=== PATIENT | female | born 1965 | race Caucasian/White ===

== ENCOUNTER 2023-12-31 15:39 | Inpatient (IN) | payer BC ==
[~2023-12-31] VITALS: Ht 167.6 cm; Wt 80.8 kg
[2023-12-31 16:39] LABS: BASOPHILS % (AUTO) 0.1 % (0-1); EOSINOPHILS % (AUTO) 0 % (0-6); HEMATOCRIT 41.2 % (35.0-45.0); HEMOGLOBIN 13.6 g/dl (12.0-16.0); LYMPHOCYTES # (AUTO) 0.4 X10'3 (1.1-4.8); LYMPHOCYTES % (AUTO) 1.4 % (21-51); MEAN CORPUSCULAR HEMOGLOBIN 33.4 PG (27.0-31.0); MEAN CORPUSCULAR HGB CONC 32.9 g/dL (33.0-36.5); MEAN CORPUSCULAR VOLUME 101.5 FL (78-98); MEAN PLATELET VOLUME 9.2 FL (7.4-10.4); MONOCYTES # (AUTO) 1.1 X10'3 (0-0.9); MONOCYTES % (AUTO) 4.4 % (2-12); NEUTROPHILS # (AUTO) 23.3 X10'3 (1.8-7.7); NEUTROPHILS % (AUTO) 94.1 % (42-75); PLATELET COUNT 183 X10'3 (140-440); RED BLOOD COUNT 4.06 X10'6 (4.20-5.60); RED CELL DISTRIBUTION WIDTH 14.4 % (11.5-14.5); WHITE BLOOD COUNT 24.8 X10'3 (4.5-11.0)
[2023-12-31 16:52] LABS: MAGNESIUM 1.6 MG/DL (1.5-2.4)
[2023-12-31] MEDS ORDERED: CefTRIAXone/D5W-Rocephin 1gm 50 ML IV ONE (18:55)
[2023-12-31] MEDS: clindamycin 600mg/D5W 50ml 50 ML IV ONE (19:41)
[2023-12-31] MEDS: normal saline 1000ml 1,000 ML IV ONE ×2 (19:42→22:43)
[2023-12-31] MEDS: HYDROmorphone inj. 0.5 MG/0.5 ML DISP.SYRIN IV ONE (19:52)
[2023-12-31 20:34] LABS: ALANINE AMINOTRANSFERASE 32 U/L (12-78); ALBUMIN 2.9 G/DL (3.4-5.0); ALBUMIN/GLOBULIN RATIO 0.7 (1.1-1.5); ALKALINE PHOSPHATASE 101 IU/L (46-116); ANION GAP 13 (8-16); ASPARTATE AMINO TRANSFERASE 46 U/L (10-37); BILIRUBIN,TOTAL 1.2 MG/DL (0.1-1.0); BLOOD UREA NITROGEN 22 MG/DL (7-18); BUN/CREATININE RATIO 13.8 (10.0-20.0); CALCIUM 8.7 MG/DL (8.5-10.1); CHLORIDE 94 MMOL/L (99-107); CREATININE 1.59 MG/DL (0.40-0.90); GLUCOSE 134 MG/DL (70-104); SODIUM 132 MMOL/L (135-145); TOTAL CARBON DIOXIDE 25.1 MMOL/L (24-32); eCRCL 36 ML/MIN; eGFR 33 ML/MIN
[2023-12-31 20:38] LABS: POTASSIUM 2.9 MMOL/L (3.5-5.1)
[2023-12-31] MEDS ORDERED: magnesium sulf-water 4G/100mL 100 ML IV PRN (20:50)
[2023-12-31] MEDS ORDERED: haloperidol lactate 5mg/ml inj IM PRN (20:50)
[2023-12-31] MEDS ORDERED: dextrose 50%-water 50ml dispensing syringe IV PRN (20:50)
[2023-12-31] MEDS ORDERED: magnesium sulf-water 2g/50mL 50 ML IV PRN (20:50)
[2023-12-31] MEDS ORDERED: haloperidol 5mg tablet PO PRN (20:50)
[2023-12-31] MEDS ORDERED: potassium Cl 40MEQ/1/2NS 520ml 520 ML IV PRN (20:50)
[2023-12-31] MEDS ORDERED: magnesium Cl slow-release 64mg tablet PO PRN (20:50)
[2023-12-31] MEDS: potassium CL 10mEq/100ml bag 100 ML IV SCH (21:00)
[2023-12-31] MEDS: thiamine 100mg/ml 2ml inj. IM ONE (21:42)
[2023-12-31] MEDS: potassium Cl 20 mEq SR tablet PO PRN (21:49)
[2023-12-31] MEDS: thiamine 100mg/ml 2ml inj. IV SCH (21:49)
[2023-12-31] MEDS: VANCOMYCIN/WATER FOR INJ (PEG) 1.25GM/250 ML IVPB IV ONE (21:49)
[2023-12-31] MEDS: normal saline 1000ml 1,000 ML IV SCH (21:50)
[2023-12-31 21:54] LABS: THYROID STIMULATING HORMONE 2.18 ulU/ml (0.34-4.50)
[2023-12-31] MEDS: acetaminophen 325mg tablet PO PRN (22:43)
[2023-12-31] MEDS: LORazepam 2 mg/ml vial IV PRN (22:43)
[2024-01-01] VITALS (13 sets, daily range): BP systolic 91–155; BP diastolic 40–77; PULSE 82–105; RESP 12–26; TEMP 98.1; O2SAT 93–99
[2024-01-01] MEDS: acetaminophen 1,000mg/100ml IV 100 ML IV ONE (00:30)
[2024-01-01] MEDS: normal saline 1000ml 1,000 ML IV ONE (01:20)
[2024-01-01] MEDS: NORepinephrine 8mg/ 250ml NS 250 ML IV ONE (01:51)
[2024-01-01 02:40] LABS: BILIRUBIN,URINE NEGATIVE (Neg); CLARITY,URINE CLOUDY (Clear); COLOR,URINE YELLOW (Yellow); GLUCOSE, URINE NEGATIVE (Neg); KETONES,URINE TRACE mg/dl (Neg); LEUKOCYTE ESTERASE ,URINE MODERATE (Neg); NITRITES, URINE NEGATIVE (Neg); OCCULT BLOOD,URINE SMALL (Neg); PROTEIN,URINE 30 mg/dl (Neg); UROBILINOGEN,URINE 0.2 E.U/dL (0.2-1.0)
[2024-01-01 02:43] LABS: UA COLLECTION TYPE FOLEY CATH
[2024-01-01 02:44] LABS: SQUAMOUS EPITHELIAL CELL,UR MANY /LPF (FEW); WBC CLUMPS,URINE MODERATE /HPF (NEGATIVE); WBC,URINE TNTC /HPF (0-4)
[2024-01-01 02:45] LABS: BACTERIA,URINE 3+ /HPF (Neg)
[2024-01-01 02:47] LABS: MUCUS STRANDS FEW /LPF (Neg); TRANSITIONAL EPI CELLS,URINE FEW /HPF
[2024-01-01 02:54] LABS: URINE AMPHETAMINE SCREEN NEGATIVE (Neg); URINE BARBITUATE SCREEN NEGATIVE (Neg); URINE BENZODIAZEPINES SCREEN NEGATIVE (Neg); URINE CANNABINOID SCREEN POSITIVE (Neg); URINE COCAINE SCREEN NEGATIVE (Neg); URINE METHADONE SCREEN NEGATIVE (Neg); URINE OPIATE SCREEN POSITIVE (Neg); URINE PHENCYCLIDINE SCREEN NEGATIVE (Neg)
[2024-01-01] MEDS: morphine 2 MG/ML inj. syringe IV PRN (03:37)
[2024-01-01] MEDS: ondansetron/PF 4mg/2ml inj IV PRN (03:37)
[2024-01-01] MEDS: piperacillin/tazo 3.375gm/50ml 50 ML IV SCH (03:52)
[2024-01-01 04:14] LABS: BASOPHILS % (AUTO) 0.1 % (0-1); EOSINOPHILS % (AUTO) 0 % (0-6); HEMATOCRIT 36.2 % (35.0-45.0); HEMOGLOBIN 11.8 g/dl (12.0-16.0); LYMPHOCYTES # (AUTO) 0.6 X10'3 (1.1-4.8); LYMPHOCYTES % (AUTO) 2.4 % (21-51); MEAN CORPUSCULAR HEMOGLOBIN 33.3 PG (27.0-31.0); MEAN CORPUSCULAR HGB CONC 32.6 g/dL (33.0-36.5); MEAN CORPUSCULAR VOLUME 101.9 FL (78-98); MEAN PLATELET VOLUME 9.5 FL (7.4-10.4); MONOCYTES # (AUTO) 1.4 X10'3 (0-0.9); MONOCYTES % (AUTO) 5.6 % (2-12); NEUTROPHILS # (AUTO) 22.8 X10'3 (1.8-7.7); NEUTROPHILS % (AUTO) 91.9 % (42-75); PLATELET COUNT 171 X10'3 (140-440); RED BLOOD COUNT 3.55 X10'6 (4.20-5.60); RED CELL DISTRIBUTION WIDTH 14.5 % (11.5-14.5); WHITE BLOOD COUNT 24.9 X10'3 (4.5-11.0)
[2024-01-01 04:21] LABS: ALANINE AMINOTRANSFERASE 22 U/L (12-78); ALBUMIN 2.2 G/DL (3.4-5.0); ALBUMIN/GLOBULIN RATIO 0.6 (1.1-1.5); ALKALINE PHOSPHATASE 78 IU/L (46-116); ANION GAP 11 (8-16); ASPARTATE AMINO TRANSFERASE 30 U/L (10-37); BILIRUBIN,TOTAL 1.1 MG/DL (0.1-1.0); BLOOD UREA NITROGEN 18 MG/DL (7-18); BUN/CREATININE RATIO 18.6 (10.0-20.0); CALCIUM 7.5 MG/DL (8.5-10.1); CHLORIDE 103 MMOL/L (99-107); CREATINE KINASE 358 U/L (26-192); CREATININE 0.97 MG/DL (0.40-0.90); GLUCOSE 114 MG/DL (70-104); POTASSIUM 3.2 MMOL/L (3.5-5.1); SODIUM 135 MMOL/L (135-145); TOTAL CARBON DIOXIDE 21.3 MMOL/L (24-32); TOTAL PROTEIN 5.9 G/DL (6.4-8.2); eCRCL 59 ML/MIN; eGFR 59 ML/MIN
[2024-01-01] MEDS ORDERED: GABA300T28 PO (04:47)
[2024-01-01] MEDS ORDERED: DICL50TA8 PO (04:47)
[2024-01-01] MEDS ORDERED: ROSU20TA73 PO (04:47)
[2024-01-01] MEDS ORDERED: BUPR-564 PO (04:47)
[2024-01-01] MEDS ORDERED: TRAM50TA2 PO (04:47)
[2024-01-01 04:56] LABS: BANDS% (MANUAL) 7 % (0-10); LYMPHOCYTES % (MANUAL) 1 % (21-51); MONOCYTES % (MANUAL) 6 % (2-12); NEUTROPHILS % (MANUAL) 86 % (42-75); PLATELET ESTIMATE NORMAL; TOTAL CELLS COUNTED 0
[2024-01-01] MEDS: K and/or MAG REPLACEMENT MC SCH (07:52)
[2024-01-01] MEDS: multivitamins, therapeutics tablet PO SCH (07:56)
[2024-01-01] MEDS: enoxaparin 40mg/0.4ml syringe SUBCUT SCH (07:58)
[2024-01-01] MEDS: folic acid 1mg/0.2ml inj IV SCH (08:10)
[2024-01-01] MEDS: albumin (Human) 5% 250ml 250 ML IV ONE (10:30)
[2024-01-01] MEDS ORDERED: GABA300C PO (10:39)
[2024-01-01] MEDS ORDERED: CALC-485 PO (10:39)
[2024-01-01] MEDS ORDERED: BACI1CAP6 PO (10:39)
[2024-01-01] MEDS: albumin (human) 25% 100ml IV 300 ML IV ONE (11:12)
[2024-01-01] MEDS: albumin (human) 25% 100ml IV 100 ML IV ONE ×2 (11:12→11:13)
[2024-01-01] MEDS: albumin (human) 25% 100ml IV 400 ML IV ONE (11:14)
[2024-01-01] MEDS: albumin (Human) 5% 250ml 250 ML IV SCH (11:15)
[2024-01-01] MEDS: ringers solution, lacted 2,000 ML IV ONE (11:15)
[2024-01-01] MEDS: TETanus/Pertussis (Acell)/Diphther VAC/PF (Tdap-Adult) 0.5ml syringe IMVAC ONE (13:34)
[2024-01-01] MEDS: VANCOMYCIN 1GM 200ML H20 (PEG) 200 ML IV SCH (13:34)
[2024-01-01] MEDS: potassium Cl 20 mEq SR tablet PO PRN (20:37)
[2024-01-01] MEDS ORDERED: VANCOMYCIN 1GM 200ML H20 (PEG) 200 ML IV SCH (21:00)
[2024-01-02] VITALS (7 sets, daily range): BP systolic 101–138; BP diastolic 57–96; PULSE 81–83; RESP 16–18; TEMP 97.5–98.6; O2SAT 98–100
[2024-01-02] MEDS: HYDROcodone/acetaminophen 5mg/325mg tablet PO PRN (00:54)
[2024-01-02 06:27] LABS: ALANINE AMINOTRANSFERASE 23 U/L (12-78); ALBUMIN 3.1 G/DL (3.4-5.0); ALBUMIN/GLOBULIN RATIO 1.2 (1.1-1.5); ALKALINE PHOSPHATASE 82 IU/L (46-116); ANION GAP 8 (8-16); ASPARTATE AMINO TRANSFERASE 45 U/L (10-37); BASOPHILS % (AUTO) 0.1 % (0-1); BLOOD UREA NITROGEN 7 MG/DL (7-18); BUN/CREATININE RATIO 10.9 (10.0-20.0); CALCIUM 7.8 MG/DL (8.5-10.1); CHLORIDE 105 MMOL/L (99-107); CREATININE 0.64 MG/DL (0.40-0.90); EOSINOPHILS # (AUTO) 0.1 X10'3 (0-0.9); EOSINOPHILS % (AUTO) 0.4 % (0-6); GLUCOSE 76 MG/DL (70-104); HEMATOCRIT 28.5 % (35.0-45.0); HEMOGLOBIN 9.2 g/dl (12.0-16.0); LYMPHOCYTES # (AUTO) 1.7 X10'3 (1.1-4.8); LYMPHOCYTES % (AUTO) 11.7 % (21-51); MAGNESIUM 1.5 MG/DL (1.5-2.4); MEAN CORPUSCULAR HEMOGLOBIN 32.9 PG (27.0-31.0); MEAN CORPUSCULAR HGB CONC 32.4 g/dL (33.0-36.5); MEAN CORPUSCULAR VOLUME 101.5 FL (78-98); MEAN PLATELET VOLUME 9.2 FL (7.4-10.4); MONOCYTES % (AUTO) 7.1 % (2-12); NEUTROPHILS # (AUTO) 11.8 X10'3 (1.8-7.7); NEUTROPHILS % (AUTO) 80.7 % (42-75); PHOSPHORUS 1.9 MG/DL (2.3-4.5); PLATELET COUNT 127 X10'3 (140-440); RED BLOOD COUNT 2.81 X10'6 (4.20-5.60); RED CELL DISTRIBUTION WIDTH 14.5 % (11.5-14.5); SODIUM 135 MMOL/L (135-145); TOTAL CARBON DIOXIDE 22.5 MMOL/L (24-32); TOTAL PROTEIN 5.7 G/DL (6.4-8.2); WHITE BLOOD COUNT 14.6 X10'3 (4.5-11.0); eCRCL 90 ML/MIN; eGFR > 90 ML/MIN
[2024-01-02 06:36] LABS: POTASSIUM 2.8 MMOL/L (3.5-5.1)
[2024-01-02] MEDS: VANCOMYCIN LEVEL IV ONE (09:30)
[2024-01-02] MEDS ORDERED: LORazepam 2 mg/ml vial IV PRN (20:50)
[2024-01-02] MEDS: VANCOMYCIN/WATER FOR INJ (PEG) 1.25GM/250 ML IVPB IV SCH (22:33)
[2024-01-03 05:06] LABS: BASOPHILS % (AUTO) 0.3 % (0-1); EOSINOPHILS # (AUTO) 0.1 X10'3 (0-0.9); EOSINOPHILS % (AUTO) 0.6 % (0-6); HEMATOCRIT 34.7 % (35.0-45.0); HEMOGLOBIN 11.4 g/dl (12.0-16.0); LYMPHOCYTES # (AUTO) 1.9 X10'3 (1.1-4.8); LYMPHOCYTES % (AUTO) 12.5 % (21-51); MEAN CORPUSCULAR HEMOGLOBIN 33.5 PG (27.0-31.0); MEAN CORPUSCULAR HGB CONC 32.7 g/dL (33.0-36.5); MEAN CORPUSCULAR VOLUME 102.5 FL (78-98); MEAN PLATELET VOLUME 9.1 FL (7.4-10.4); MONOCYTES # (AUTO) 1.6 X10'3 (0-0.9); MONOCYTES % (AUTO) 10.8 % (2-12); NEUTROPHILS # (AUTO) 11.4 X10'3 (1.8-7.7); NEUTROPHILS % (AUTO) 75.8 % (42-75); PLATELET COUNT 174 X10'3 (140-440); RED BLOOD COUNT 3.39 X10'6 (4.20-5.60); RED CELL DISTRIBUTION WIDTH 14.5 % (11.5-14.5)
[2024-01-03 05:49] LABS: ALANINE AMINOTRANSFERASE 33 U/L (12-78); ALBUMIN 3.3 G/DL (3.4-5.0); ALKALINE PHOSPHATASE 116 IU/L (46-116); ANION GAP 9 (8-16); ASPARTATE AMINO TRANSFERASE 44 U/L (10-37); BILIRUBIN,TOTAL 0.9 MG/DL (0.1-1.0); BLOOD UREA NITROGEN 5 MG/DL (7-18); BUN/CREATININE RATIO 8.2 (10.0-20.0); CALCIUM 8.9 MG/DL (8.5-10.1); CHLORIDE 105 MMOL/L (99-107); CREATININE 0.61 MG/DL (0.40-0.90); GLUCOSE 78 MG/DL (70-104); MAGNESIUM 1.4 MG/DL (1.5-2.4); PHOSPHORUS 1.4 MG/DL (2.3-4.5); POTASSIUM 3.4 MMOL/L (3.5-5.1); SODIUM 137 MMOL/L (135-145); TOTAL CARBON DIOXIDE 23.2 MMOL/L (24-32); TOTAL PROTEIN 6.6 G/DL (6.4-8.2); eCRCL 94 ML/MIN; eGFR > 90 ML/MIN
[2024-01-03 06:00] VITALS: BP 124/78; PULSE 80; RESP 20; TEMP 97.5; O2SAT 94
[2024-01-03 08:00] VITALS: RESP 16; O2SAT 94
[2024-01-03] MEDS: LORazepam 1 MG tablet PO PRN (10:40)
[2024-01-03 20:00] VITALS: RESP 17
[2024-01-04] MEDS ORDERED: magnesium sulf-water 2g/50mL 50 ML IV PRN (03:35)
[2024-01-04] MEDS ORDERED: potassium Cl 20 mEq SR tablet PO PRN (03:35)
[2024-01-04] MEDS ORDERED: potassium Cl 40MEQ/1/2NS 520ml 520 ML IV PRN (03:35)
[2024-01-04] MEDS ORDERED: magnesium sulf-water 4G/100mL 100 ML IV PRN (03:35)
[2024-01-04] MEDS: potassium Cl 20 mEq SR tablet PO PRN (03:55)
[2024-01-04] MEDS: magnesium Cl slow-release 64mg tablet PO PRN (03:56)
[2024-01-04 06:06] LABS: BASOPHILS # (AUTO) 0.1 X10'3 (0-0.2); BASOPHILS % (AUTO) 0.5 % (0-1); EOSINOPHILS # (AUTO) 0.1 X10'3 (0-0.9); EOSINOPHILS % (AUTO) 1.2 % (0-6); HEMATOCRIT 33.8 % (35.0-45.0); HEMOGLOBIN 11.1 g/dl (12.0-16.0); LYMPHOCYTES # (AUTO) 2.3 X10'3 (1.1-4.8); LYMPHOCYTES % (AUTO) 21.8 % (21-51); MEAN CORPUSCULAR HEMOGLOBIN 33.1 PG (27.0-31.0); MEAN CORPUSCULAR HGB CONC 32.8 g/dL (33.0-36.5); MEAN CORPUSCULAR VOLUME 101.1 FL (78-98); MEAN PLATELET VOLUME 9.1 FL (7.4-10.4); MONOCYTES # (AUTO) 1.4 X10'3 (0-0.9); MONOCYTES % (AUTO) 12.9 % (2-12); NEUTROPHILS # (AUTO) 6.8 X10'3 (1.8-7.7); NEUTROPHILS % (AUTO) 63.6 % (42-75); PLATELET COUNT 234 X10'3 (140-440); RED BLOOD COUNT 3.35 X10'6 (4.20-5.60); RED CELL DISTRIBUTION WIDTH 14.9 % (11.5-14.5); WHITE BLOOD COUNT 10.7 X10'3 (4.5-11.0)
[2024-01-04 06:26] LABS: ALANINE AMINOTRANSFERASE 30 U/L (12-78); ALBUMIN 2.9 G/DL (3.4-5.0); ALBUMIN/GLOBULIN RATIO 0.9 (1.1-1.5); ALKALINE PHOSPHATASE 110 IU/L (46-116); ANION GAP 7 (8-16); ASPARTATE AMINO TRANSFERASE 33 U/L (10-37); BILIRUBIN,TOTAL 0.7 MG/DL (0.1-1.0); BLOOD UREA NITROGEN 4 MG/DL (7-18); BUN/CREATININE RATIO 6.9 (10.0-20.0); CALCIUM 8.8 MG/DL (8.5-10.1); CHLORIDE 102 MMOL/L (99-107); CREATININE 0.58 MG/DL (0.40-0.90); GLUCOSE 128 MG/DL (70-104); MAGNESIUM 1.4 MG/DL (1.5-2.4); PHOSPHORUS 2.3 MG/DL (2.3-4.5); SODIUM 135 MMOL/L (135-145); TOTAL CARBON DIOXIDE 26.3 MMOL/L (24-32); TOTAL PROTEIN 6.3 G/DL (6.4-8.2); eCRCL 99 ML/MIN; eGFR > 90 ML/MIN
[2024-01-04 06:28] LABS: POTASSIUM 2.8 MMOL/L (3.5-5.1)
[2024-01-04 08:00] VITALS: RESP 16; O2SAT 92
[2024-01-04] MEDS: K and/or MAG REPLACEMENT MC SCH (08:00)
[2024-01-04 10:00] VITALS: BP 135/86; PULSE 79; RESP 20; TEMP 97.6; O2SAT 100
[2024-01-04] MEDS ORDERED: VANCOMYCIN LEVEL IV ONE (10:30)
[2024-01-04 11:05] VITALS: RESP 16
[2024-01-04] MEDS ORDERED: LACT1CAP26 PO (11:31)
[2024-01-04] MEDS ORDERED: AMOX500C2 PO (11:31)
[2024-01-04] MEDS ORDERED: FOLI0.4T6 PO (11:33)
[2024-01-04] MEDS ORDERED: MULT-1085 PO (11:33)
[2024-01-04] MEDS ORDERED: POTA15TA11 PO (11:34)
[2024-01-04] MEDS ORDERED: MULT-25 PO (11:35)
[2024-01-04] MEDS ORDERED: MAGN64TA10 PO (11:36)
[2024-01-04] MEDS ORDERED: LORazepam 2 mg/ml vial IV PRN (20:50)
[2024-01-04] MEDS ORDERED: LORazepam 1 MG tablet PO PRN (20:50)
[2024-01-05] MEDS ORDERED: folic acid 1mg tablet PO SCH (08:00)
[2024-01-05] MEDS ORDERED: thiamine 100mg tablet PO SCH (08:00)
== END 2024-01-04 16:52 | disposition home or self-care (01) | DRG 871 ==
LOC: ER 15:39 → ED HOLD 20:56 → EDBEDREQ 01-01 09:24 → CICU 2S 01-01 09:36 → SUR 3N 01-01 20:55
PROVIDERS: ADMIT Internal Medicine Critical Care Medicine; ATTEND Internal Medicine
PROC: 02HV33Z Insertion of Infusion Device into Superior Vena Cava, Percutaneous Approach (ICD-10-PCS; principal; 2024-01-01)
PROC: B548ZZA Ultrasonography of Superior Vena Cava, Guidance (ICD-10-PCS; 2024-01-01)
DX: A41.9 Sepsis, unspecified organism (principal); R65.21 Severe sepsis with septic shock; L03.113 Cellulitis of right upper limb; N17.9 Acute kidney failure, unspecified; E87.1 Hypo-osmolality and hyponatremia; E87.20 Acidosis, unspecified; M17.12 Unilateral primary osteoarthritis, left knee; E87.6 Hypokalemia; E78.5 Hyperlipidemia, unspecified; F10.10 Alcohol abuse, uncomplicated; Y90.9 Presence of alcohol in blood, level not specified; E88.09 Other disorders of plasma-protein metabolism, not elsewhere classified; D53.9 Nutritional anemia, unspecified; S41.111A Laceration without foreign body of right upper arm, initial encounter; L98.499 Non-pressure chronic ulcer of skin of other sites with unspecified severity; S40.821A Blister (nonthermal) of right upper arm, initial encounter; W18.39XA Other fall on same level, initial encounter; L53.9 Erythematous condition, unspecified; R23.8 Other skin changes; Y93.89 Activity, other specified; Y92.89 Other specified places as the place of occurrence of the external cause; Y99.8 Other external cause status
CPT/HCPCS: 36415; 71045; 73200; 80053; 80202; 80305; 81001; 82550; 82607; 83605; 83735; 84100; 84132; 84145; 84443; 85007; 85025; 87040; 87077; 87081; 87088; 87186; 90715; A6223; A6253; A6446; A6449; C1751; C1758; G0378; J0131; J1171; J1650; J2060; J2270; J2405; J2543; J3370; J3372; J3411; J3490; J7030; J7120; P9045; P9047